=== PATIENT | female | born 1950 | race Caucasian/White ===

== ENCOUNTER 2018-10-08 05:27 | Day surgery (SDC) | payer OTHER ==
[~2018-10-08 05:27] MED LIST: CARVEDILOL12.5 MG PO; COZAAR50 MG PO; GABAPENTIN800 MG PO; NEURONTIN300 MG PO; OMEPRAZOLE10 MG PO; RESTORIL30 M1 PO; ZOCOR20 MG PO
== END 2018-10-08 13:05 | disposition home or self-care (01) ==
LOC: CIR.AMB 05:27
DX: H72.02 Central perforation of tympanic membrane, left ear (principal)